=== PATIENT | male | born 1950 | race Caucasian/White ===

== ENCOUNTER 2017-12-13 14:40 | Emergency (ER) | payer OTHER, BC ==
--- NOTE | 2017-12-13 14:52 | CPEKG ---
Heart Rate: 80 RR Interval: 750 P-R Interval: 140 QRSD Interval: 72 QT Interval: 388 QTC Interval: 448 P [place]: 69 QRS [place]: 53 T Wave [place]: 40 EKG Severity - NORMAL ECG - EKG Impression: SINUS RHYTHM Electronically Signed By: Maxime Mejía 13-Dec-2017 14:56:38
[2017-12-13] MEDS ORDERED: NS 1,000 ML IV ONE (14:55)
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
[2017-12-13 15:01] LABS: PLATELET COUNT 181 10^3/uL (150-400)
[2017-12-13] MEDS ORDERED: IOPAMIDOL (ISOVUE 370) 100 ML BTL IV ONE (16:01)
[2017-12-13] MEDS ORDERED: LIDOCAINE 4%/MENTHOL 1% PATCH TD ONE (17:46)
[2017-12-13] MEDS ORDERED: HYDROCOD/APAP 5/325 PREPACK#6 BTL TAKEHOME ONE (17:46)
[2017-12-13 18:13] VITALS: BP 148/76
[2017-12-13] MEDS ORDERED: PATCH REMOVAL 1 EA PATCH TD SCH (21:00)
== END 2017-12-13 18:13 | disposition home or self-care (01) ==
DX: S20.212A Contusion of left front wall of thorax, initial encounter (principal); R11.2 Nausea with vomiting, unspecified; E86.0 Dehydration; W22.8XXA Striking against or struck by other objects, initial encounter
CPT/HCPCS: 71275; 74177; 93005; 96360; 99285; Q9967; 82947-QW